=== PATIENT | female | born 1945 | race Caucasian/White ===

== ENCOUNTER 2018-12-06 10:04 | Observation (INO) ==
[2018-12-06] MEDS ORDERED: Ondansetron 4 MG/2 ML VIAL IVP ONE (10:07)
[2018-12-06] MEDS ORDERED: 0.9 % Sodium Chloride 1,000 ML IVC ONE (10:07)
[2018-12-06] MEDS ORDERED: Pantoprazole 40 MG VIAL IVP ONE (10:07)
--- NOTE | 2018-12-06 10:10 | Emergency Department Note ---
Disposition Clinical Impression: Persistent vomiting, Acute renal insufficiency Disposition: Admitted As Inpatient Condition: Fair Referrals: Ryder Hernandez MD [Primary Care Provider] - Forms: ED Satisfaction Letter Time of Disposition: 11:28 Nausea/Vomiting/Diarrhea HPI - General Chief complaint: ED Abdominal Pain Stated complaint: N/V ABDOMINAL PAIN Time Seen by Provider: 12/06/18 10:07 Source: patient Mode of arrival: private vehicle Limitations: no limitations Nursing Notes Reviewed: Yes Vital Signs Reviewed: Yes - History of Present Illness HPI Narrative: Patient presents stating that she has had persistent nausea and vomiting for a week. With this she relates she has taken almost no food and liquids but did hold her medicines down yesterday. This chart Sunday evening and she has nausea vomiting after trying need or drink anything. This has been somewhat of recurrent problem but this has persisted for the week prompting her to come in. States she started to feel weak and dizzy getting up and around this morning. She states she has no abdominal pain and has "just nausea". She has diarrhea and has been moving her bowels. She has urinary troubles. She states she has had chest pain all week with vomiting. She denies any other chest pain or exertional chest pain. She has had a feeling of fevers and chills but has not checked her temperature. She states she has had a cough productive of some phlegm and saliva but no shortness of breath. She states that she is "in bed all week". She denies any ill exposures, foodborne illness concerns, recent antibiotics or travel. She has had abdominal surgery including hiatal hernia repair, hysterectomy and appendectomy. She states she sees multiple specialists in [place] "for my stomach". She has had esophageal stretching and is continued with problems ever since the fundoplication and hiatal hernia repair last year. She relates because of the nausea and vomiting she has "been in bed all week". The patient also states that she has been having chronic left hip pain for about 6 months. She is been recommended to MRI but has not had it done yet. She is not having increased hip pain or problems at this time. Pt Subjective Complaint: nausea, vomiting Onset (ago): week(s) (1) Description of emesis: food contents, watery Severity: none Severity scale (1-10): 0 Consistency: intermittent Improves with: nothing Worsens with: eating, vomiting Context: history of abdominal surgery Associated symptoms: Reports: chest pain, cough, fever/chills, loss of appetite, malaise, nausea/vomiting, weakness. Denies: myalgias, diaphoresis, headaches, rash, dysuria, shortness of breath, syncope - Related Data Home Medications Medication Instructions Recorded Confirmed Omeprazole [PriLOSEC] 20 mg PO BID 03/24/16 12/06/18 Lactobacillus Acidophilus/Fos 1 tab PO DAILY 03/21/18 05/08/18 [Acidophilus Probiotic Tablet] Lisinopril [Zestril] 5 mg PO HS 03/21/18 12/06/18 Metoprolol Tartrate 50 mg PO BID 03/21/18 12/06/18 Allergies Allergy/AdvReac Type Severity Reaction Status Date / Time No Known Allergies Allergy Verified 04/11/18 12:01 All systems ED: reviewed and negative except as stated. Past Medical History - Past Medical History Attestation: Yes The following information was validated with the patient. Source: patient, old records reviewed, nursing notes reviewed Medical history: Reports: arthritis, GERD, hyperlipidemia, hypertension, liver disease, other Surgical history: Reports: appendectomy, colectomy, orthopedic, other, REMINGTON/BSO, other (Hiatal hernia repair, esophageal stretching) Psychiatric history: Reports: anxiety, depression [employer] history: Reports: no [employer] history - Social History Smoking Status: Current every day smoker Smokeless Tobacco Status: No Alcohol use: Reports: none Drug use: Reports: none Physical Exam - General Limitations: no limitations General appearance: alert, in no apparent distress - Head Head exam: atraumatic, normocephalic, normal inspection - Eye Eye exam: Present: normal appearance, PERRL, EOMI. Absent: scleral icterus, conjunctival injection - ENT ENT exam: normal oropharynx, mucous membranes dry - Neck Neck exam: Present: normal inspection, full ROM, trachea midline - Chest Chest inspection: Present: normal inspection, symmetric chest wall rise - Respiratory Respiratory exam: Present: normal lung sounds bilaterally. Absent: respiratory distress, wheezes, prolonged expiratory phase - Cardiovascular Cardiovascular exam: Present: regular rate, normal rhythm, normal heart sounds. Absent: tachycardia - Abdominal Exam Abdominal exam: Present: soft, Non-Tender, normal bowel sounds. Absent: tenderness, distention, guarding, rebound, rigidity, Barksdale's sign, tenderness at McBurney's Point - Extremities Exam Extremities exam: Present: normal inspection, full ROM, normal capillary refill. Absent: tenderness, pedal edema - Expanded Lower Extremity Exam Neurovascular/Tendon exam: Present: normal capillary refill. Absent: motor deficit, sensory deficit, tendon deficit Gait: observed and normal - Back Exam Back exam: Present: normal inspection, full ROM. Absent: tenderness, CVA tenderness (R), CVA tenderness (L) - Neurological Exam Neurological exam: Present: alert, oriented X3, normal gait - Psychiatric Psychiatric exam: Present: normal affect, normal mood. Absent: agitated, anxious - Skin Skin exam: Present: warm, dry, intact, normal color. Absent: diaphoresis, erythema Course Course Narrative: Given the patient's persistent nausea vomiting and acute renal insufficiency with a creatinine 1.8, I recommend a continuation of IV fluids. Care has been discussed with the patient and Dr. Jesus for this purpose. Verbal orders have been obtained and she is coordinated for observation in stable condition. Vital Signs Temperature 97.5 F L 12/06/18 10:05 Pulse Rate 71 12/06/18 10:05 Respiratory Rate 16 12/06/18 10:05 Blood Pressure 126/79 12/06/18 10:05 O2 Sat by Pulse Oximetry 96 12/06/18 10:05 Temperature 97.5 F L 12/06/18 10:05 Pulse Rate 69 12/06/18 11:01 Respiratory Rate 18 12/06/18 11:01 Blood Pressure 99/56 12/06/18 11:01 O2 Sat by Pulse Oximetry 95 12/06/18 11:01 Oxygen Delivery Oxygen Delivery Room Air Nausea/Vomiting/Diarrhea - Differential Diagnosis Likely: food poisoning, gastroenteritis, dehydration - Medical Records Medical records reviewed: Yes I reviewed the patient's medical records. NM/NM gastric emptying study IMPRESSION: 1. Limited exam. Patient vomited after 2 hour images and standard 4 hour images were not able to be obtained. 2. Borderline gastric emptying at 2 hours. D/ / Ricardo Holt MD / Ricardo Holt MD CT/CT abd pelvis w iv and oral IMPRESSION: Status post hernia repair. There is a persistent, small hiatal hernia with a paraesophageal component. There is wall thickening and edema of the distal esophagus, GE junction, and proximal stomach. There is soft tissue stranding of the surrounding fat in the lower mediastinum and upper abdomen. Small locule of extraluminal air adjacent to the paraesophageal component of the hernia. Overall, findings are greater than expected for several weeks status post surgery. Given small focus of extraluminal gas, microperforation/leak cannot be excluded. Findings were discussed with Mikhail Dennison at 3:04 pm on 05/07/2018. D/ / 05/07/2018 15:09:55 Sparkle Redd MD / chaz - Lab Data Lab results reviewed: Yes I reviewed the patient's lab results. Result diagrams: 12/06/18 10:25 12/06/18 10:25 Lab Results 12/06/18 12/06/18 Range/Units 10:25 10:25 WBC 11.6 H (4.3-11.1) K/mcL RBC 4.72 (3.82-4.97) M/mcL Hgb 15.6 H (11.5-15.4) g/dL Hct 43.8 (35.3-44.9) % MCV 92.8 (83.0-100.0) fL MCH 33.1 (28.0-33.3) pg MCHC 35.6 H (31.6-35.5) g/dL RDW 11.9 (11.5-14.5) % Plt Count 295 (140-400) K/mcL MPV 10.1 (9.4-12.4) fL Immature Gran % 0.3 (0-4) % Seg Neutrophils % 75.5 % Lymphocytes % 17.8 % Monocytes % 5.9 % Eosinophils % 0.2 % Basophils % 0.3 % Neutrophils # 8.8 (1.6-8.9) K/mcL Lymphocytes # 2.1 (0.6-4.6) K/mcL Monocytes # 0.7 (0.0-1.3) K/mcL Eosinophils # 0.0 (0.0-0.6) K/mcL Basophils # 0.0 (0.0-0.2) K/mcL Sodium 132 L (136-145) mEq/L Potassium 3.7 (3.5-5.1) mEq/L Chloride 97 L (98-107) mEq/L Carbon Dioxide 24 (23-29) mEq/L BUN 58 H (8-23) mg/dL Creatinine 1.80 H (0.60-1.20) mg/dL Est GFR ( Amer) 33 L (> 60) Est GFR (Non-Af Amer) 28 L (> 60) BUN/Creatinine Ratio 32 H (6-26) Glucose 141 H (70-105) mg/dL Calculated Osmolality 293 (280-300) Calcium 9.1 (8.6-10.3) mg/dL Total Bilirubin 0.7 (0.3-1.0) mg/dL Direct Bilirubin 0.2 (0.0-0.2) mg/dL Indirect Bilirubin 0.5 (0.0-1.2) mg/dL AST 25 (13-39) Units/L ALT 29 (7-52) Units/L Alkaline Phosphatase 54 (34-104) Units/L Troponin I < 0.03 (< 0.04) ng/mL Serum Total Protein 7.3 (6.4-8.9) g/dL Albumin 3.7 (3.5-5.7) g/dL Globulin 3.6 H (2.4-3.5) g/dL Albumin/Globulin Ratio 1.0 L (1.1-2.2) Amylase 18 L (29-103) Units/L Lipase 8 L (11-82) Units/L - Radiology Data Radiology results reviewed: Yes I reviewed the patient's radiology results. CT is performed of the abdomen and pelvis without IV or oral contrast. This shows the bases the lungs be free of infiltrate, effusion or mass. The liver, spleen and pancreas appear normal. Stomach is not distended and does not show inflammation. She is status post hiatal hernia repair without evidence of compromise of this surgery. Kidneys are without stone or obstruction. Bowel is without inflammatory change, obstruction or perforation. Patient has some diverticular disease without evidence for diverticulitis. Bony structures remarkable for some mild scoliosis and degenerative changes. No acute abnormalities seen to account for this patient's persistent vomiting complaint. This is on my interpretation. Impressions Abdomen/Pelvis CT 12/06/18 10:49 IMPRESSION: No acute abnormality in the abdomen or pelvis. Small hiatal hernia. Compared to the prior study from 05/07/2018, the previously noted edema in the distal esophagus and stranding about the gastroesophageal junction has resolved. D/ / Zeeshan Zhao / Zeeshan Zhao Interpreting Provider: Zeeshan Zhao - EKG Data EKG attestation: Yes I reviewed and interpreted this EKG. EKG shows normal: sinus rhythm, axis, intervals, QRS complexes, ST-T waves Rate: normal (71) Interpretation: no acute changes, normal EKG
[2018-12-06 10:34] LABS: Basophils % 0.3 %; Eosinophils % 0.2 %; Hematocrit 43.8 % (35.3-44.9); Hemoglobin 15.6 g/dL (11.5-15.4); Immature Granulocytes % 0.3 % (0-4); Lymphocytes # 2.1 K/mcL (0.6-4.6); Lymphocytes % 17.8 %; Mean Corpuscular HGB Conc 35.6 g/dL (31.6-35.5); Mean Corpuscular Hemoglobin 33.1 pg (28.0-33.3); Mean Corpuscular Volume 92.8 fL (83.0-100.0); Mean Platelet Volume 10.1 fL (9.4-12.4); Monocytes # 0.7 K/mcL (0.0-1.3); Monocytes % 5.9 %; Neutrophils # 8.8 K/mcL (1.6-8.9); Platelet Count 295 K/mcL (140-400); Red Blood Count 4.72 M/mcL (3.82-4.97); Red Cell Distribution Width 11.9 % (11.5-14.5); Segmented Neutrophils % 75.5 %; White Blood Count 11.6 K/mcL (4.3-11.1)
[2018-12-06 10:53] LABS: Troponin I < 0.03 ng/mL (< 0.04)
[2018-12-06 10:54] LABS: Alanine Aminotransferase 29 Units/L (7-52); Albumin 3.7 g/dL (3.5-5.7); Alkaline Phosphatase 54 Units/L (34-104); Amylase 18 Units/L (29-103); Aspartate Amino Transferase 25 Units/L (13-39); BUN/Creatinine Ratio 32 (6-26); Bilirubin,Direct 0.2 mg/dL (0.0-0.2); Bilirubin,Indirect 0.5 mg/dL (0.0-1.2); Bilirubin,Total 0.7 mg/dL (0.3-1.0); Blood Urea Nitrogen 58 mg/dL (8-23); Calcium 9.1 mg/dL (8.6-10.3); Carbon Dioxide 24 mEq/L (23-29); Chloride 97 mEq/L (98-107); Globulin 3.6 g/dL (2.4-3.5); Glucose 141 mg/dL (70-105); Lipase 8 Units/L (11-82); Osmolality,Calculated 293 (280-300); Potassium 3.7 mEq/L (3.5-5.1); Sodium 132 mEq/L (136-145); Total Protein 7.3 g/dL (6.4-8.9); eGFR For African Americans 33 (> 60); eGFR For Non-African Americans 28 (> 60)
[2018-12-06] MEDS ORDERED: Ondansetron 4 MG/2 ML VIAL IVP PRN ×2 (11:59→16:24)
[2018-12-06] MEDS ORDERED: MOM Conc 10 ML UD.LIQ PO PRN (11:59)
[2018-12-06] MEDS ORDERED: 0.9 % Sodium Chloride 1,000 ML IVC SCH (11:59)
[2018-12-06] MEDS ORDERED: Naloxone 0.4 MG/ML INJ IVP PRN (11:59)
[2018-12-06 15:02] LABS: Bilirubin,Urine Negative (Negative); Blood,Urine Negative (Negative); Clarity,Urine Clear (Clear); Color,Urine Dark Yellow (Yellow); Glucose,Urine (UA) Normal (Normal); Ketones,Urine Negative (Negative); Leukocyte Esterase,Urine Negative (Negative); Nitrite,Urine Negative (Negative); PH,Urine 5.5 pH Units (5.0-8.0); Protein,Urine Trace mg/dL (Neg-Trace); Urobilinogen,Urine Normal (Normal)
--- NOTE | 2018-12-06 16:06 | Internal Med History&Physical ---
Date of Encounter: 12/06/18 Time of Encounter: 15:35 Assessment and Plan (1) Acute renal insufficiency Current visit: Yes Status: Acute Suspect due to vomiting. IV fluids have been ordered. Anti-emetics will be given as needed. (2) Weight loss Current visit: Yes Status: Acute TSH will be checked in a.m. (3) Hypertension Current visit: No Status: Chronic Blood pressure borderline low. Hold lisinopril and metoprolol. Qualifiers: Hypertension type: essential hypertension Qualified Code(s): I10 - Essential (primary) hypertension (4) Anxiety Current visit: No Status: Acute Xanax will be given as needed. Internal Medicine - H&P: HPI Chief complaint: Hematemesis, melena, acute renal failure Admitted From: Emergency Dept Plans for Post Hospital Care: Home History of present illness: Ms. Hopkins is a 73 year old female who came to emergency room stating she had 7-10 day history of vomiting with occasional dark blood. She also had some episodes of melena. She had a fall at home yesterday and felt progressively weak over the next 24 hours. She came to emergency room was evaluated and was found to have acute on chronic renal insufficiency. She was admitted to [facility] floor for ongoing care needs. GI history is pertinent for esophageal stenosis requiring dilatations on 4 separate occasions. She had hiatal hernia surgery repair few years ago. She has been diagnosed with nonalcoholic fatty liver disease. Reports 14 inches of segmental resection of her colon for "near rupture" without further details known. She denies other disorders of her liver gallbladder or exocrine pancreas. Past Med Surg Social Fam HX - Past Medical History Medical history: arthritis, GERD, hyperlipidemia, hypertension, liver disease, other Additional medical history: hiatal hernia - DJD, sciatica, diverticular disease, chronic pain, eczema, fatty liver Psychiatric history: anxiety, depression - Past Surgical History Surgical History: appendectomy, colectomy, orthopedic, other, REMINGTON/BSO, other Additional surgical history: back, both knees, part of colon out, - colonoscopy - EGD, HIATAL HERNIA REPAIR - Social History Smoking Status: Current every day smoker Packs per day: 0.5 Smokeless Tobacco Status: No Alcohol use: rarely Drug use: none - Family History Mother Living Status: Hx Family Cardiac Disorders: Yes Hx Family Respiratory Disorders: No Hx Family Cancer: Yes (lung, bone) Hx Family GI Disorders: No Hx Family Endocrine Disorder: Yes (DM) Hx Family Neuromuscular Disorders: No Hx Family Neurologic Disorders: No Hx Family HEENT Disorders: No Hx Family Autoimmune Disorders: No Internal Medicine - H&P: Meds Omeprazole [PriLOSEC] 20 mg PO BID 03/24/16 [History] Lactobacillus Acidophilus/Fos [Acidophilus Probiotic Tablet] 1 tab PO DAILY 03/21/18 [History] Lisinopril [Zestril] 5 mg PO HS 03/21/18 [History] Metoprolol Tartrate 50 mg PO BID 03/21/18 [History] Allergy/AdvReac Type Severity Reaction Status Date / Time No Known Allergies Allergy Verified 04/11/18 12:01 All Systems PM: A 10-system review of systems was performed and is negative for pertinent findings except as documented above in the HPI. Review of systems: Gen.: Her weight has decreased from 88.4 kg on 03/21/2018 to 68.039 kg at present. She states this was unintentional. Cardiovascular: She has history of hypertension but denies IN heart failure or pulmonary embolism. She thinks she was told by her PCP she had a "blood clot" in her leg several years ago but did not have diagnostic study done and did not take anticoagulation.. Respiratory: She has smoked since age 44 up to one pack per day. She denies chronic lung disease and does not use home oxygen. GI: As per history of present illness : She denies hematuria dysuria or kidney stones Neurologic: She denies large distribution strokes or seizures. Endocrine: She has history of I per lipidemia but states she does not take Rx for this. She denies diabetes or thyroid disease. Hematology/oncology: She denies blood disorders cancers or anemia Psychiatric: She has anxiety and depression but denies other mental health issues. [place] skeletal: She has DJD. She has had back fusion surgery does not remember details. She has had arthroscopic surgery on both knees. She reports a fall approximately 6 months ago with intermittent left hip pain since then. She denies gout or other bone joint or muscle disorders. - Constitutional Vitals: Temp Pulse Resp BP Pulse Ox 97.5 F L 57 18 98/50 97 12/06/18 10:05 12/06/18 11:40 12/06/18 12:35 12/06/18 12:35 12/06/18 11:40 Exam: Gen.: She is a well-developed well-nourished female resting comfortably in bed who appears in no acute distress HEENT: Head is atraumatic and normal cephalic. Eyes: EOMI. There is no scleral icterus. Mouth: Mucosa is moist. Neck: Supple and nontender. There is no thyromegaly or adenopathy noted. Heart: Regular without murmurs gallops or ectopics Lungs: No wheezes or crackles are heard. Abdomen: Soft and nontender. No masses or guarding are noted. Extremities: There is no cyanosis edema or clubbing noted. Dorsalis pedis and posterior tibial pulses are trace to 1+ palpable bilaterally. Neurologic: Mental status: She is talkative and a good historian. Cranial nerves: Smile is symmetric. Forehead wrinkles bilaterally. Tongue protrudes midline. EOMI. Motor: There is no pronator drift. Cerebellar: Finger to nose is intact bilaterally. Skin: Warm and dry Internal Med - H&P Results - Labs CBC & Chem 7: 12/06/18 10:25 12/06/18 10:25 Labs: Short CBC 12/06/18 Range/Units 10:25 WBC 11.6 H (4.3-11.1) K/mcL Hgb 15.6 H (11.5-15.4) g/dL Hct 43.8 (35.3-44.9) % Plt Count 295 (140-400) K/mcL Neutrophils # 8.8 (1.6-8.9) K/mcL BMP 12/06/18 10:25 Sodium 132 L Potassium 3.7 Chloride 97 L Carbon Dioxide 24 BUN 58 H Creatinine 1.80 H Glucose 141 H Calcium 9.1 Cardiac Enzymes 12/06/18 Range/Units 10:25 Troponin I < 0.03 (< 0.04) ng/mL Liver Function 12/06/18 Range/Units 10:25 Total Bilirubin 0.7 (0.3-1.0) mg/dL Direct Bilirubin 0.2 (0.0-0.2) mg/dL AST 25 (13-39) Units/L ALT 29 (7-52) Units/L Alkaline Phosphatase 54 (34-104) Units/L Albumin 3.7 (3.5-5.7) g/dL Urine 12/06/18 Range/Units 10:07 Urine Color Dark Yellow (Yellow) Urine Clarity Clear (Clear) Urine pH 5.5 (5.0-8.0) pH Units Ur Specific [place] 1.020 (1.010-1.025) Urine Protein Trace (Neg-Trace) mg/dL Urine Glucose (UA) Normal (Normal) mg/dL - Impressions ITS Impressions Abdomen/Pelvis CT 12/06/18 10:49 IMPRESSION: No acute abnormality in the abdomen or pelvis. Small hiatal hernia. Compared to the prior study from 05/07/2018, the previously noted edema in the distal esophagus and stranding about the gastroesophageal junction has resolved. D/ / 12/06/2018 11:13:55 Zeeshan Zhao / chaz Interpreting Provider: Zeeshan Zhao
[2018-12-06] MEDS ORDERED: ALPRAZolam 0.5 MG TABLET PO PRN (16:23)
[2018-12-06] MEDS: 0.45 % Sodium Chloride w/KCl 20 MEQ/1,000 ML MLS IVC SCH (16:51)
--- NOTE | 2018-12-06 18:48 | Electrocardiograph Report ---
[place] [id number] Test Date: 2018-12-06 Pat Name: Beryl Hopkins Department: EDP-12 Room: [facility] Gender: F Director Of Primary Care: : 1945 Requested By: Suleman Lou Order Number: [id number] Reading MD: Vlad Dong Measurements Intervals [place] Rate: 71 P: 24 [place]: 133 QRS: 10 QRSD: 77 T: 16 QT: 435 QTc: 473 Interpretive Statements Sinus rhythm Electronically Signed On 12-06-2018 18:46:22 EDT by Vlad Dong
[2018-12-06] MEDS ORDERED: traZODone 50 MG TABLET PO SCH (21:00)
[2018-12-07] MEDS: 0.45 % Sodium Chloride w/KCl 20 MEQ/1,000 ML MLS IVC SCH (02:44)
[2018-12-07 07:11] VITALS: BP 107/53
[2018-12-07 07:39] LABS: Basophils # 0.1 K/mcL (0.0-0.2); Basophils % 0.8 %; Eosinophils # 0.3 K/mcL (0.0-0.6); Eosinophils % 4.7 %; Hematocrit 39.6 % (35.3-44.9); Hemoglobin 13.4 g/dL (11.5-15.4); Immature Granulocytes % 0.3 % (0-4); Lymphocytes # 2.4 K/mcL (0.6-4.6); Lymphocytes % 38.2 %; Mean Corpuscular HGB Conc 33.8 g/dL (31.6-35.5); Mean Corpuscular Hemoglobin 32.8 pg (28.0-33.3); Mean Corpuscular Volume 96.8 fL (83.0-100.0); Mean Platelet Volume 10.4 fL (9.4-12.4); Monocytes # 0.5 K/mcL (0.0-1.3); Monocytes % 8.4 %; Neutrophils # 2.9 K/mcL (1.6-8.9); Platelet Count 206 K/mcL (140-400); Red Blood Count 4.09 M/mcL (3.82-4.97); Red Cell Distribution Width 12.1 % (11.5-14.5); Segmented Neutrophils % 47.6 %; White Blood Count 6.2 K/mcL (4.3-11.1)
[2018-12-07 08:00] LABS: Calcium 8.2 mg/dL (8.6-10.3); Potassium 3.5 mEq/L (3.5-5.1)
--- NOTE | 2018-12-07 09:43 | Discharge Summary ---
Date of Encounter: 12/07/18 Time of Encounter: 09:34 - Discharge Diagnosis (1) Acute renal insufficiency Priority: Primary Status: Acute (2) Weight loss Priority: Secondary Status: Acute (3) Hypertension Priority: Secondary Status: Chronic Qualifiers: Hypertension type: essential hypertension Qualified Code(s): I10 - Essential (primary) hypertension (4) Anxiety Priority: Secondary Status: Chronic Hospital course: Ms. Hopkins is a 73 year old female who came to emergency room stating she had 7-10 day history of vomiting with occasional dark blood. She also had some episodes of melena. She had a fall at home yesterday and felt progressively weak over the next 24 hours. She came to emergency room was evaluated and was found to have acute on chronic renal insufficiency. She was admitted to [facility] for ongoing care needs. Initial orders were written by the emergency room physician. I saw her on December 06 performed a history and physical. She was started on IV fluids. Antiemetics were given as needed. By the following day she felt significantly improved and reported no pain and wished to be discharged home. WBC had normalized to 6.2. Azotemia improved with BUN and creatinine 36 and 1.2 respectively on day of discharge with estimated GFR 41. Her PCP can continue to monitor. Blood pressure was borderline low. Lisinopril will be discontinued. Metoprolol will be decreased to 25 mg twice a day. TSH returned WNL at 0.383. The etiology of her reported weight loss can be further evaluated by her PCP. She will have a 6 minute walk prior to discharge. I encouraged her to become a nonsmoker. She will follow with her PCP Dr. Hernandez within 1 week. Follow up for reported melena can be done as an outpatient. - Time Spent with Patient Total time spent providing and/or coordinating discharge services: - Discharge Medications Prescriptions: Continued Omeprazole [PriLOSEC] 20 mg PO BID Lactobacillus Acidophilus/Fos [Acidophilus Probiotic Tablet] 1 tab PO DAILY Changed Metoprolol Tartrate 25 mg PO BID #0 Discontinued Lisinopril [Zestril] 5 mg PO HS Home Medications: Omeprazole [PriLOSEC] 20 mg PO BID 03/24/16 [History] Lactobacillus Acidophilus/Fos [Acidophilus Probiotic Tablet] 1 tab PO DAILY 03/21/18 [History] Metoprolol Tartrate 25 mg PO BID #0 12/07/18 [Rx] Allergies/Adverse Reactions: Allergy/AdvReac Type Severity Reaction Status Date / Time No Known Allergies Allergy Verified 04/11/18 12:01 Date of admission: 12/06/18 11:46 Primary care physician: Ryder Hernandez MD - Constitutional Vitals: Temp Pulse Resp BP Pulse Ox 97.4 F L 56 17 107/53 95 12/07/18 07:10 12/07/18 07:10 12/07/18 07:10 12/07/18 07:10 12/07/18 07:10 - Patient Status Disposition: Home, Self-Care Condition: Fair - Discharge Instructions Follow Up With: Ryder Hernandez MD [Primary Care Provider] - 1 week - Diet and Activity Activity: resume usual activities as tolerated Diet: advance to your usual diet
[2018-12-07 11:26] LABS: Estimated Average Glucose 126 mg/dl
== END 2018-12-07 11:34 | disposition home or self-care (01) ==
LOC: EMEROOPIK 10:04 → INPPIK 10:04
PROVIDERS: ADMIT Internal Medicine; ATTEND Internal Medicine